=== PATIENT | female | born 1970 | race Caucasian/White ===

== ENCOUNTER 2019-11-30 12:03 | Emergency (ER) | payer SELFPAY ==
[2019-11-30 12:10] VITALS: BP 122/74; PULSE 59; RESP 22; TEMP 36.7; O2SAT 100; BMI 19.2
--- NOTE | 2019-11-30 12:19 | ED.SKABFB ---
HPI - Skin/Abscess/Foreign Bdy <Stephany Ewing PA-C - Last Filed: 11/30/19 23:14> General Chief complaint: Skin/Abscess/Foreign Body Stated complaint: surgery on tue,rash today Time Seen by Provider: 11/30/19 12:19 Source: patient Mode of arrival: Ambulatory Limitations: no limitations History of Present Illness HPI narrative: This is a previously healthy 48 year old who carpal tunnel release surgery 2 days ago at [facility] and comes in complaining of a rash on her left arm and on her neck that began this morning and an associated sensation of swelling of her tongue as well as some swelling in her throat that feels different when she swallows. She says that she noticed the rash 1st on her left arm on the palm side of her forarm and felt a little bit itchy shortly thereafter she noticed some itching under her chin and then on her neck and then began to notice her tongue felt a little bit different and her throat felt different when she swallowed she took a Benadryl at 10:27 a.m. this morning and since that time she has had a little bit of relief from the itching and has not had worsening of her symptoms. She called her doctor to discuss her symptoms because she has been taking Vicodin since her surgery and she was concerned she could be having a reaction to this although she has taken it previously with no ill effect. Her doctor advised her to come to the emergency department for further evaluation. She states that she has an allergy to latex but the only reaction she has had to this is localized inflammation for example she wears latex gloves her hands get inflamed and swollen. She denies any other allergies, she denies any changes to her detergents, her diet, her environment. She says she was out in the sun a fair amount yesterday. She denies any other symptoms including shortness of breath, respiratory distress, cough, lightheadedness, dizziness, nausea, vomiting, diarrhea, abdominal pain, or any other symptoms. complaint: rash Onset (ago): hour(s) (4) Location: neck and LUE Severity: mild Severity scale (1-10): 1 Quality: constant and pruritic Pain Consistency: constant Relieving factors: medication (benadryl helped) Exacerbating factors: none Context: new medication (surgery 2 days ago, vicodin for 2 days (has had it before)) Associated symptoms: other (throat feels slightly swollen, tongue feels slightly swollen) Treatments prior to arrival: Benadryl Related Data Previous Rx's Medication Instructions Recorded prednisone 40 mg PO DAILY #6 tab MDD 40mg 11/30/19 Allergies Allergy/AdvReac Type Severity Reaction Status Date / Time latex Allergy Verified 11/30/19 12:10 Review of Systems <Stephany Ewing PA-C - Last Filed: 11/30/19 23:14> Review of Systems Narrative: GENERAL: Denies chills, fatigue, malaise, fever, sweats. HEENT: Denies sinus pain, ear pain, sore throat, difficulty swallowing, dizziness endorses a sensation of her tongue feeling a little bit larger, as well as some similar sensation when she swallows in her throat. RESPIRATORY: Denies dyspnea, cough, wheezing, hemoptysis, sputum. CARDIOVASCULAR: Denies chest pain, palpitations, orthopnea, edema, GASTROINTESTINAL: Denies nausea, vomiting, abdominal pain, diarrhea, constipation, melena. : Denies dysuria, frequency, incontinence, hematuria, urinary retention. MUSCULOSKELETAL: denies weakness, joint pain, or bony pain SKIN: Endorses a rash on her left forearm and her neck, denies skin lesions, or other NEUROLOGIC: Denies weakness, headache, numbness, change in speech, confusion, seizures, incoordination. PSYCHIATRIC: No concerning psychosocial issues. 12 point review of systems is negative except for those stated above Patient History <Stephany Ewing PA-C - Last Filed: 11/30/19 23:14> Social History Smoking Status: Never smoker Smoking Status: Never smoker alcohol intake frequency: holidays/special occasions only Substance Use Type: marijuana Exam <Stephany Ewing PA-C - Last Filed: 11/30/19 23:14> Narrative Exam Narrative: GENERAL: 48 year old patient appears stated age. Well-nourished, slim patient, in mild distress. HEAD: Atraumatic. Normocephalic. EYES: Pupils equal round and reactive. Extraocular motions intact. No scleral icterus. No injection or drainage. ENT: Nose without bleeding, purulent drainage. Throat without erythema, tonsillar hypertrophy or exudate. Airway patent. NECK: Trachea midline. Non tender CARDIOVASCULAR: Regular rate and rhythm without murmurs, gallops, or rubs. RESPIRATORY: Clear to auscultation. Breath sounds equal bilaterally. No wheezes, rales, or rhonchi. GASTROINTESTINAL: Abdomen soft, non-tender, nondistended. EXTREMITIES: No edema or joint tenderness. BACK: Nontender without deformity or crepitance. No flank tenderness. NEURO: AOx3. SKIN: There is very subtle slightly erythematous macular rash with ill defined borders over a large region on her anterior forearm on the left and a similar rash on her anterior neck and under her chin. No other rashes are visible on visualized portions of the skin. Initial Vital Signs Initial Vital Signs: Vital Signs Temperature 98.0 F 11/30/19 12:10 Pulse Rate 59 L 11/30/19 12:10 Respiratory Rate 22 11/30/19 12:10 Blood Pressure 122/74 11/30/19 12:10 Pulse Oximetry 100 11/30/19 12:10 <Frandy Bazan MD - Last Filed: 12/14/19 07:54> Initial Vital Signs Initial Vital Signs: Vital Signs Temperature 98.0 F 11/30/19 12:10 Pulse Rate 59 L 11/30/19 12:10 Respiratory Rate 22 11/30/19 12:10 Blood Pressure 122/74 11/30/19 12:10 Pulse Oximetry 100 11/30/19 12:10 Course <Stephany Ewing PA-C - Last Filed: 11/30/19 23:14> Course Course Narrative: Based on exam I have limits suspicion for an acute reaction such as anaphylaxis or angioedema, however her description of feeling like her tongue is swelling and her throat may be swelling earlier this morning prior to Benadryl is concerning, for this reason I am initiating prednisone, and plan to give her a prescription for this as an outpatient, as well as given her an additional Benadryl, and famotidine. Orders Ordered: Discontinued Medications Acetaminophen (Tylenol) 650 mg PO NOW ONE Stop: 11/30/19 12:34 Last Admin: 11/30/19 13:26 Dose: 650 mg Documented by: RADHA Diphenhydramine HCl (Benadryl) 25 mg IV NOW ONE Stop: 11/30/19 12:42 Last Admin: 11/30/19 13:27 Dose: 25 mg Documented by: RADHA Famotidine (Pepcid) 20 mg in 50 mls @ 200 mls/hr IV NOW ONE Stop: 11/30/19 12:55 Last Infusion: 11/30/19 13:45 Dose: 0 mls/hr Documented by: Admin: 11/30/19 13:27 Dose: 200 mls/hr Documented by: RADHA Ibuprofen (Advil) 400 mg PO NOW ONE Stop: 11/30/19 12:34 Last Admin: 11/30/19 13:26 Dose: 400 mg Documented by: RADHA Prednisone (Deltasone) 60 mg PO NOW ONE Stop: 11/30/19 12:42 Last Admin: 11/30/19 13:27 Dose: 60 mg Documented by: RADHA Vital Signs Vital signs: Vital Signs - 8 hr 11/30/19 12:10 Temperature 98.0 F Pulse Rate 59 L Respiratory Rate 22 Blood Pressure 122/74 Pulse Oximetry 100 <Frandy Bazan MD - Last Filed: 12/14/19 07:54> Orders Ordered: Discontinued Medications Acetaminophen (Tylenol) 650 mg PO NOW ONE Stop: 11/30/19 12:34 Last Admin: 11/30/19 13:26 Dose: 650 mg Documented by: RADHA Diphenhydramine HCl (Benadryl) 25 mg IV NOW ONE Stop: 11/30/19 12:42 Last Admin: 11/30/19 13:27 Dose: 25 mg Documented by: RADHA Famotidine (Pepcid) 20 mg in 50 mls @ 200 mls/hr IV NOW ONE Stop: 11/30/19 12:55 Last Infusion: 11/30/19 13:45 Dose: 0 mls/hr Documented by: Admin: 11/30/19 13:27 Dose: 200 mls/hr Documented by: RADHA Ibuprofen (Advil) 400 mg PO NOW ONE Stop: 11/30/19 12:34 Last Admin: 11/30/19 13:26 Dose: 400 mg Documented by: RADHA Prednisone (Deltasone) 60 mg PO NOW ONE Stop: 11/30/19 12:42 Last Admin: 11/30/19 13:27 Dose: 60 mg Documented by: RSTONE Vital Signs Vital signs: Vital Signs - 8 hr 11/30/19 12:10 Temperature 98.0 F Pulse Rate 59 L Respiratory Rate 22 Blood Pressure 122/74 Pulse Oximetry 100 MDM - Skin/Abscess/Foreign Bdy <Stephany Ewing PA-C - Last Filed: 11/30/19 23:14> Differential Diagnosis Differential diagnosis: Likely other (allergic reaction, rash) Medical Records Attestation: I reviewed the patient's medical records. [facility] Narrative Medical decision making narrative: This is generally well-appearing 48-year-old who presents with a very subtle rash of her anterior neck, under her chin and on her left anterior forearm, with notable complaints of sensation of her tongue swelling somewhat and her throat feeling slightly swollen as well. No known allergies except for ?swelling of her hands when in latex gloves.? S/P carpal tunnel release on the left, taking Vicodin for the past 2 days. No history of reactions to Vicodin previously. No known environmental exposures. Differential diagnoses that were considered include contact dermatitis, allergic reaction to medication, sun exposure, allergic reaction to environmental allergen. I had low suspicion that the patient's symptoms would progress to anaphylaxis, based on her presentation and history, however her description of sensation of tongue swelling and throat swelling was concerning, and steroids were initiated in the emergency department orally as well as famotidine and Benadryl, she was advised to have close PCP follow-up, continue to take steroids for the next 3 days as well as Benadryl at OTC dosing advised regarding not driving or operating machinery, advised regarding emergency return precautions. All questions were answered. Prescription provided for prednisone Discharge Plan Departure Patient Disposition: Home Clinical Impression: Rash and nonspecific skin eruption Allergic reaction Qualifiers: Encounter type: initial encounter Qualified Code(s): T78.40XA - Allergy, unspecified, initial encounter Discharge Date/Time: 11/30/19 13:51 Instructions: DI for General Allergic Reactions Activity Restrictions/Additional Instructions: Thank you for letting us be part of your care in the emergency department today. There is no evidence of an emergent or life threatening illness at this time, but follow up with your doctor in 1-2 days is recommended nonetheless to continue to rule out serious underlying causes of your symptoms. Please call their office for an appointment. Please return to the Emergency Department for any worsening or persistent symptoms. Please stop taking your Vicodin you can take Tylenol and ibuprofen for pain instead. Please take the following medications as directed. I do think you are having an allergic reaction although it is unclear if this is from medicine you are taking or from something else that you have been exposed to. I recommend you continue to take Benadryl per [id number] dosing for the next 3 days, and I am also giving a prescription for prednisone which she should also take for the next 3 days you should not need to take any of this today as you have already received a dose in the emergency department. If you do note any changes or worsening of your symptoms including shortness of breath, feeling like her throat is swelling increasingly or your tongue is swelling or worsening of your rash, lightheadedness dizziness low blood pressure or any other symptoms of concern to you please seek medical care immediately or return to the emergency department. Prescriptions: New prednisone 20 mg tablet 40 mg PO DAILY MDD 40mg Qty: 6 RF: 0
[2019-11-30] MEDS: IBUPROFEN 400 MG TABLET PO (13:26)
[2019-11-30] MEDS: ACETAMINOPHEN 325 MG TABLET 650 MG PO (13:26)
[2019-11-30] MEDS: predniSONE 20 MG TABLET 60 MG PO (13:27)
[2019-11-30] MEDS: FAMOTIDINE 20 MG/50 ML PIGGYBACK 200 MG IV (13:27)
[2019-11-30] MEDS: diphenhydrAMINE 50 MG/ML VIAL 25 MG IV (13:27)
[2019-11-30 13:51] VITALS: BP 118/73; PULSE 66; O2SAT 100
== END 2019-11-30 13:51 | disposition home or self-care (01) ==
PROVIDERS: Emergency Provider Student in an Organized Health Care Education/Training Program
DX: R21 Rash and other nonspecific skin eruption (principal); T78.40XA Allergy, unspecified, initial encounter
CPT/HCPCS: 96365; 96375; 99283; 99284; J1200